=== PATIENT | female | born 1995 | race Caucasian/White ===

== ENCOUNTER 2017-01-28 12:48 | Emergency (ER) | payer OTHER ==
[~2017-01-28] VITALS: Ht 165.1 cm; Wt 49.1 kg
[~2017-01-28 12:48] MED LIST: BCPILLS PO; PRED20TA PO
[2017-01-28 12:50] VITALS: TEMP 36.4; Ht 165.1 cm; Wt 49.1 kg
[2017-01-28 13:00] VITALS: O2SAT 99
[2017-01-28] MEDS ORDERED: SODIUM CHLORIDE 0.9% 1000ML 1,000 ML IV STA (13:05)
--- NOTE | 2017-01-28 13:14 | EMERGENCY ROOM VISIT NOTE ---
History Report prepared by Dunia: Bull Pérez Under the Supervision of: Dr. Candido Morton D.O. First contact with patient: 12:54 Chief Complaint: SYNCOPE (NEAR SYNCOPE) Stated Complaint: REOCCURRING BLACKOUTS History of Present Illness The patient is a 21 year old female who presents to the Emergency Room with complaints of intermittent near syncopal episodes beginning 2-3 months prior to arrival. She states her last episode occurred last night at work. The patient states her episode are preceded by 1-2 days of back of the neck pain that radiates to her head, followed by her heart beginning to race and her vision beginning to blacken. She notes her symptoms are relieves by lying down. The patient notes the episodes are inconsistent where they can occur a few times a week, to once a week, to not at all in a week. She cannot identify what causes her symptoms. The patient associates occasional shortness of breath with today' s symptoms. She states she had a cold two weeks ago. The patient notes she takes control but no other medications. She states her last menstrual period was four days ago. The patient states she was referred to the ED by her PCP. She denies nausea, vomiting, fever, chest pain, and recent weight gain or loss. Source of History: patient Onset: 2-3 months [employer] KEE[employer] Position: other (global) Quality: other (near syncope) Timing: intermittent Modifying Factors (Relieving): other (lying down) Associated Symptoms: + SOB (intermittent), + neck pain (intermittent that radiates to the head), No chest pain, No fevers, No nausea, No vomiting Note: Associated symptoms: vision blacking out, intermittent racing heart. Review of Systems See HPI for pertinent positives & negatives. A total of 10 systems reviewed and were otherwise negative. Past Medical & Surgical Medical Problems: (1) UTI (urinary tract infection) Family History Patient reports no known family medical history. Social History Smoking Status: Never Smoker Alcohol Use: none Drug Use: none Marital Status: single Housing Status: lives with family Occupation Status: student Current/Historical Medications Scheduled Control Pills ( Control Pills), 1 TAB PO DAILY Nitrofurantoin Monohyd Macrocr (Macrobid), 100 MG PO BID Allergies Coded Allergies: Pistachio (Verified Allergy, Severe, throat swelling, 01/28/17) Physical Exam Vital Signs Date Time Temp Pulse Resp B/P Pulse Ox O2 Delivery O2 Flow Rate FiO2 01/28/17 15:40 84 14 121/66 99 Room Air 01/28/17 14:03 110 22 92 01/28/17 14:02 92 133/78 01/28/17 14:01 75 114/78 01/28/17 14:00 62 105/74 01/28/17 13:58 76 14 100 01/28/17 13:53 78 19 93 01/28/17 13:48 70 16 99 01/28/17 13:43 74 20 99 01/28/17 13:38 74 16 98 01/28/17 13:33 77 17 97 01/28/17 13:30 120/71 01/28/17 13:28 70 16 98 01/28/17 13:25 126/87 01/28/17 13:00 99 Room Air 01/28/17 13:00 99 Room Air 01/28/17 12:50 36.4 83 18 147/96 99 Room Air Physical Exam GENERAL: Patient is awake, alert, and in no acute distress. Patient is resting comfortably and showing no signs of anxiety EYES: The conjunctivae are clear. The pupils are round and reactive. EARS, NOSE, MOUTH AND THROAT: The nose is without any evidence of any deformity. Mucous membranes are moist tongue is midline NECK: The neck is nontender and supple. No anterior neck tenderness and no carotidynia. RESPIRATORY: Normal respiratory effort is noted there is no evidence of wheezing rhonchi or rales CARDIOVASCULAR: Regular rate and rhythm noted there no murmurs rubs or gallops normal S1 normal S2 GASTROINTESTINAL: The abdomen is soft. Bowel sounds are present in all quadrants. Abdomen is nontender MUSCULOSKELETAL/EXTREMITIES: There is no evidence of gross deformity full range of motion is noted in the hips and shoulders SKIN: There is no obvious evidence of any rash. There are no petechiae, pallor or cyanosis noted. NEUROLOGIC: Patient is awake alert and oriented x3 strength is symmetric patellar reflexes are 2+ bilaterally Medical Decision & Procedures ER Provider Diagnostic Interpretation: Radiology results as stated below per my review and radiologist interpretation: CHEST ONE VIEW PORTABLE CLINICAL HISTORY: EVALUATE ALTERED MENTAL STATUS/WEAKNESS COMPARISON STUDY: Chest radiograph September 17, 2016. FINDINGS: Lung volumes are normal. No consolidation is identified and there is no evidence of pulmonary edema. Cardiomediastinal silhouette is normal. No pneumothorax or pleural effusion is present. IMPRESSION: No acute cardiopulmonary findings. Electronically signed by: Wilmer Obregon M.D. 01/28/2017 1:[address] OF THE HEAD WITHOUT CONTRAST CLINICAL HISTORY: Headache. Syncopal episodes. Altered mental status. COMPARISON STUDY: No previous studies for comparison. CT DOSE: 537.48 mGy.cm TECHNIQUE: Helical axial images of the head were obtained without IV contrast. Automated exposure control was utilized for the study. FINDINGS: No acute intracranial hemorrhage, midline shift or mass effect is present. This study is mildly compromised by streak artifact due to earrings. Ventricular system is normal. Basilar cisterns are patent. There are no extra-axial collections. Aggarwal-white differentiation is maintained. There are no findings to suggest acute dural sinus thrombosis or acute territorial infarct. There is no calvarial fracture. IMPRESSION: No acute intracranial findings. Electronically signed by: Wilmer Obregon M.D. 01/28/2017 2:44 PM Laboratory Results 01/28/17 13:20 Red Blood Count 4.65, Mean Corpuscular Volume 84.3, Mean Corpuscular Hemoglobin 30.1, Mean Corpuscular Hemoglobin Concent 35.7, Mean Platelet Volume 9.7, Neutrophils (%) (Auto) 61.1, Lymphocytes (%) (Auto) 30.9, Monocytes (%) (Auto) 5.5, Eosinophils (%) (Auto) 2.1, Basophils (%) (Auto) 0.2, Neutrophils # (Auto) 3.87, Lymphocytes # (Auto) 1.95, Monocytes # (Auto) 0.35, Eosinophils # (Auto) 0.13, Basophils # (Auto) 0.01 01/28/17 13:20 Test 01/28/17 13:18 01/28/17 13:20 Bedside Glucose 85 mg/dl (70-90) White Blood Count 6.32 K/uL (4.8-10.8) Red Blood Count 4.65 M/uL (4.2-5.4) Hemoglobin 14.0 g/dL (12.0-16.0) Hematocrit 39.2 % (37-47) Mean Corpuscular Volume 84.3 fL (80-100) Mean Corpuscular Hemoglobin 30.1 pg (25-34) Mean Corpuscular Hemoglobin Concent 35.7 g/dl (32-36) Platelet Count 261 K/uL (130-400) Mean Platelet Volume 9.7 fL (7.4-10.4) Neutrophils (%) (Auto) 61.1 % Lymphocytes (%) (Auto) 30.9 % Monocytes (%) (Auto) 5.5 % Eosinophils (%) (Auto) 2.1 % Basophils (%) (Auto) 0.2 % Neutrophils # (Auto) 3.87 K/uL (1.4-6.5) Lymphocytes # (Auto) 1.95 K/uL (1.2-3.4) Monocytes # (Auto) 0.35 K/uL (0.11-0.59) Eosinophils # (Auto) 0.13 K/uL (0-0.5) Basophils # (Auto) 0.01 K/uL (0-0.2) RDW Standard Deviation 37.3 fL (36.4-46.3) RDW Coefficient of Variation 12.1 % (11.5-14.5) Immature Granulocyte % (Auto) 0.2 % Immature Granulocyte # (Auto) 0.01 K/uL (0.00-0.02) Urine Color ORANGE Urine Appearance CLOUDY (CLEAR) Urine pH 6.0 (4.5-7.5) Urine Specific [place] 1.041 (1.000-1.030) Urine Protein 2+ (NEG) Urine Glucose (UA) NEG (NEG) Urine Ketones TRACE (NEG) Urine Occult Blood NEG (NEG) Urine Nitrite NEG (NEG) Urine Bilirubin 1+ (NEG) Urine Urobilinogen NEG (NEG) Urine Leukocyte Esterase SMALL (NEG) Urine WBC (Auto) >30 /hpf (0-5) Urine RBC (Auto) 0-4 /hpf (0-4) Urine Hyaline Casts (Auto) 0 /lpf (0-5) Urine Epithelial Cells (Auto) >30 /lpf (0-5) Urine Bacteria (Auto) 1+ (NEG) Urine Pathogenic Casts /lpf (0) Urine Mucus PRESENT (NONE PRSENT) Anion Gap 7.0 mmol/L (3-11) Est Creatinine Clear Calc Drug Dose 72.3 ml/min Estimated GFR () 98.1 Estimated GFR (Non- 84.7 BUN/Creatinine Ratio 15.3 (10-20) Calcium Level 9.3 mg/dl (8.5-10.1) Magnesium Level 2.1 mg/dl (1.8-2.4) Total Bilirubin 0.8 mg/dl (0.2-1) Direct Bilirubin 0.2 mg/dl (0-0.2) Aspartate Amino Transf (AST/SGOT) 15 U/L (15-37) Alanine Aminotransferase (ALT/SGPT) 37 U/L (12-78) Alkaline Phosphatase 52 U/L (45-117) Troponin I < 0.015 ng/ml (0-0.045) Total Protein 7.8 gm/dl (6.4-8.2) Albumin 4.1 gm/dl (3.4-5.0) Thyroid Stimulating Hormone (TSH) 2.720 uIu/ml (0.300-4.500) Human Chorionic Gonadotropin, Qual NEG (NEG) Laboratory results per my review. Medications Administered Medications (Trade) Dose Ordered Sig/Nik Route Start Time Stop Time Status Last Admin Dose Admin Sodium Chloride (Nss 1000ml) 1,000 ml @ 999 mls/hr Q1H1M STAT IV 01/28/17 13:05 01/28/17 14:05 DC 01/28/17 14:05 999 MLS/HR ECG Indication: syncope Rate (beats per minute): 58 Rhythm: sinus bradycardia Findings: no ectopy, other (no acute ST segment abnormalities) Comparison ECG Date: 09/17/2016 Change: no significant change ED Course 1304: The patient was evaluated in room B11B. A complete history and physical examination were performed. 1305: Ordered Sodium Chloride 1,000 ml @ 999 mls/hr IV. 1458: Upon reevaluation, the patient is doing well. I discussed the results and treatment plan with her. She verbalized agreement of the treatment plan. The patient was discharged home. Medical Decision Differential diagnosis: Etiologies such as vasovagal event, infection, hypoglycemia, electrolyte abnormalities, cardiac sources, intracerebral event, toxicologic, neurologic, as well as others were entertained. Nursing notes reviewed. The patient is a 21-year-old female who presented to the emergency department for an evaluation of syncope. The patient is had episodes of syncope for the last few months. They have no pattern. She does not have any meningismus or focal neurologic deficits. I discussed the patient's laboratory radiographic studies with her. She was treated with IV fluids. She was found have a slight urinary tract infection which could explain the patient's symptoms at this time. She was encouraged to rest and avoid any strenuous activity. She was encouraged to drink plenty clear liquids and keep herself well-hydrated. She was also encouraged to follow-up with her family doctor for further evaluation including echocardiogram and Holter monitor. She was also encouraged to return to emergency department immediately if symptoms change worsen or the need arises. Impression Primary Impression: Dehydration Additional Impressions: Syncope UTI (urinary tract infection) Scribe Attestation The scribe's documentation has been prepared under my direction and personally reviewed by me in its entirety. I confirm that the note above accurately reflects all work, treatment, procedures, and medical decision making performed by me. Departure Information Dispostion Home / Self-Care Prescriptions Nitrofurantoin Monohyd Macrocr (Macrobid) 100 Mg Cap 100 MG PO BID, #14 CAP Prov: Candido Morton, DO 01/28/17 Referrals No Doctor, Assigned (PCP) Forms HOME CARE DOCUMENTATION FORM, IMPORTANT VISIT INFORMATION, School Instructions, Work Instructions Patient Instructions My [facility], Syncope, Urinary Tract Infecs Women Additional Instructions Continue all medications as prescribed. Drink plenty of clear liquids. Call your family DrSoniya to schedule a follow-up appointment. You may require other studies such as an echocardiogram and a Holter monitor to further evaluate the cause of your passing out. Return to the emergency department immediately symptoms change worsen or the need arises. Avoid any strenuous activity until you've been cleared by your family doctor. Problem Qualifiers Additional Impressions: Syncope Syncope type: unspecified Qualified Codes: R55 - Syncope and collapse UTI (urinary tract infection) Urinary tract infection type: acute cystitis Hematuria presence: without hematuria Qualified Codes: N30.00 - Acute cystitis without hematuria
--- NOTE | 2017-01-28 13:23 | DIAGNOSTIC IMAGING REPORT ---
CHEST ONE VIEW PORTABLE CLINICAL HISTORY: EVALUATE ALTERED MENTAL STATUS/WEAKNESS COMPARISON STUDY: Chest radiograph September 17, 2016. FINDINGS: Lung volumes are normal. No consolidation is identified and there is no evidence of pulmonary edema. Cardiomediastinal silhouette is normal. No pneumothorax or pleural effusion is present. IMPRESSION: No acute cardiopulmonary findings. Electronically signed by: Wilmer Obregon M.D. 01/28/2017 1:22 PM Dictated Date/Time: 01/28/2017 1:21 PM
[2017-01-28 13:36] LABS: BASO % 0.2 %; BASO ABS # 0.01 K/uL (0-0.2); COMPLETE YES; EOS % 2.1 %; HEMATOCRIT 39.2 % (37-47); IG% 0.2 %; LYMPH % 30.9 %; LYMPH ABS # 1.95 K/uL (1.2-3.4); MEAN CELL VOLUME 84.3 fL (80-100); MEAN CORPUSCULAR HEMOGLOBIN 30.1 pg (25-34); MEAN CORPUSCULAR HGB CONC 35.7 g/dl (32-36); MEAN PLATELET VOLUME 9.7 fL (7.4-10.4); MONO % 5.5 %; NEUT % 61.1 %; PLATELET COUNT 261 K/uL (130-400); RED BLOOD COUNT 4.65 M/uL (4.2-5.4); WHITE BLOOD COUNT 6.32 K/uL (4.8-10.8)
[2017-01-28 14:01] LABS: URINE APPEARANCE CLOUDY (CLEAR); URINE COLOR ORANGE; URINE EPITHELIAL CELL AUTO >30 /lpf (0-5); URINE NITRITE NEG (NEG); URINE SPECIFIC GRAVITY 1.041 (1.000-1.030); UROBILINOGEN NEG (NEG)
[2017-01-28 14:06] LABS: ALT/SGPT 37 U/L (12-78); AST/SGOT 15 U/L (15-37); BLOOD UREA NITROGEN 15 mg/dl (7-18); BUN/CREATININE RATIO 15.3 (10-20); CALCIUM 9.3 mg/dl (8.5-10.1); CARBON DIOXIDE 28 mmol/L (21-32); CHLORIDE 107 mmol/L (98-107); CREATININE 0.97 mg/dl (0.60-1.20); GLUCOSE 86 mg/dl (70-99); MAGNESIUM 2.1 mg/dl (1.8-2.4); POTASSIUM 3.7 mmol/L (3.5-5.1); SODIUM 142 mmol/L (136-145)
[2017-01-28 14:09] LABS: MANUAL MICROSCOPIC REQUIRED? NO; REVIEW REQ? YES; URINE BILIRUBIN 1+ (NEG)
[2017-01-28 14:17] LABS: ALKALINE PHOSPHATASE 52 U/L (45-117)
[2017-01-28 14:26] LABS: PREG INTERNAL NEGATIVE QC NEG CLEAR BACKGROUND; PREG INTERNAL POSITIVE QC POS CONTROL LINE
[2017-01-28 14:32] LABS: URINE MUCUS PRESENT (NONE PRSENT)
--- NOTE | 2017-01-28 14:45 | DIAGNOSTIC IMAGING REPORT ---
CT OF THE HEAD WITHOUT CONTRAST CLINICAL HISTORY: Headache. Syncopal episodes. Altered mental status. COMPARISON STUDY: No previous studies for comparison. CT DOSE: 537.48 mGy.cm TECHNIQUE: Helical axial images of the head were obtained without IV contrast. Automated exposure control was utilized for the study. FINDINGS: No acute intracranial hemorrhage, midline shift or mass effect is present. This study is mildly compromised by streak artifact due to earrings. Ventricular system is normal. Basilar cisterns are patent. There are no extra-axial collections. Aggarwal-white differentiation is maintained. There are no findings to suggest acute dural sinus thrombosis or acute territorial infarct. There is no calvarial fracture. IMPRESSION: No acute intracranial findings. Electronically signed by: Wilmer Obregon M.D. 01/28/2017 2:44 PM Dictated Date/Time: 01/28/2017 2:43 PM
[2017-01-28] MEDS ORDERED: NITR-5 PO (14:53)
[2017-01-28 15:40] VITALS: BP 121/66; PULSE 84; O2SAT 99
== END 2017-01-28 15:48 | disposition home or self-care (01) ==
LOC: C.EDB 12:49
DX: R55 Syncope and collapse (principal); N39.0 Urinary tract infection, site not specified; Z79.3 Long term (current) use of hormonal contraceptives